=== PATIENT | male | born 1980 | race Hispanic/Latino ===

== ENCOUNTER 2018-05-17 20:46 | Emergency (ER) | payer OTHER | END 2018-05-17 21:05 | disposition home or self-care (01) | LOC: EDH 20:46 | DX: M79.671 Pain in right foot (principal); M79.674 Pain in right toe(s); G89.29 Other chronic pain | CPT/HCPCS: 99281 ==

== ENCOUNTER 2019-06-03 19:41 | Emergency (ER) | payer OTHER | END 2019-06-03 20:55 | disposition home or self-care (01) | LOC: EDH 19:41 | DX: R22.31 Localized swelling, mass and lump, right upper limb (principal) | CPT/HCPCS: 99281 ==

== ENCOUNTER 2021-12-01 21:12 | Emergency (ER) | payer OTHER ==
[~2021-12-01] VITALS: Ht 172.7 cm; Wt 73.5 kg
[2021-12-01 22:02] VITALS: BP 136/83
[2021-12-01] MEDS ORDERED: AMOX1TAB16 PO (22:36)
[2021-12-01] MEDS ORDERED: IBUP-2071 PO (22:36)
[2021-12-01] MEDS ORDERED: AMOX/CLAV 875/125MG TAB PO ONE ×2 (22:46→23:00)
[2021-12-01] MEDS ORDERED: NEOMYCIN/POLYMYXIN/HC OTIC SUSP 10ML BOTTLE ONE (22:46)
[2021-12-01] MEDS ORDERED: NEOMYCIN/POLYMYXIN/HC OTIC SUSP 10ML BOTTLE AD SCH (23:00)
== END 2021-12-01 23:05 | disposition home or self-care (01) ==
LOC: EDH 21:12
DX: T16.1XXA Foreign body in right ear, initial encounter (principal); H60.91 Unspecified otitis externa, right ear; X58.XXXA Exposure to other specified factors, initial encounter; Y93.89 Activity, other specified; Y92.89 Other specified places as the place of occurrence of the external cause; Y99.8 Other external cause status
CPT/HCPCS: 69200

== ENCOUNTER 2022-12-20 18:43 | Emergency (ER) | payer OTHER ==
[~2022-12-20] VITALS: Ht 172.7 cm; Wt 75.3 kg
[~2022-12-20 18:43] MED LIST: AMOX1TAB16 PO; IBUP-2071 PO
[2022-12-20] MEDS ORDERED: KETOROLAC 30MG VIAL (30MG/ML) IM ONE (21:30)
[2022-12-20] MEDS ORDERED: IBUPROFEN 600 MG TABLET ONE (21:34)
[2022-12-20 21:42] VITALS: BP 124/68
== END 2022-12-20 22:03 | disposition home or self-care (01) ==
LOC: EDH 18:43
DX: M25.521 Pain in right elbow (principal)
CPT/HCPCS: 99282; J1885

== ENCOUNTER 2024-08-25 20:25 | Emergency (ER) | payer SELFPAY ==
[~2024-08-25] VITALS: Ht 172.7 cm; Wt 72.6 kg
[2024-08-25 21:16] VITALS: BP 130/75; PULSE 85; RESP 16; TEMP 99; O2SAT 98
[2024-08-25] MEDS: DiphenhydrAMINE HCL 25 MG CAPSULE PO ONE (21:28)
[2024-08-25] MEDS: FAMOTIDINE 20MG TAB PO ONE (21:28)
[2024-08-25] MEDS ORDERED: DIPH-1242 PO (21:29)
[2024-08-25] MEDS ORDERED: HYDR28OI10 TP (21:29)
--- NOTE | 2024-08-25 21:30 | ERN ---
General Chief Complaint: Insect Bite Stated Complaint: INSECT BITE RT CHEST Time Seen by MD: 20:27 Time Seen by Midlevel: 20:27 Source: patient History of Present Illness Initial Comments Patient is a 43-year-old male presenting to the emergency department with redness to his chest. Patient believes he was bit by an unknown insect approximately 2 hours prior to arrival. He noticed an area of redness with the pain and decided to report to the ER for further evaluation. No other symptoms reported at this time. Allergies: Coded Allergies: No Known Allergies (Unverified Allergy, Unknown, 06/04/19) Home Meds Active Scripts Ibuprofen (Ibuprofen) 800 Mg Tablet, 800 MG PO TID PRN for PAIN, #45 TAB Prov:DEON JEFF 12/01/21 Amoxicillin/Potassium Clav (Amox Tr-K Clv 875-125 mg Tab) 1 Each Tablet, 1 EACH PO BID, #20 TAB Prov:DEON JEFF 12/01/21 Past Medical History Past Medical History: No Pertinent History Past Surgical History: None Family History Family History: Negative Social History Social History: Negative ROS Dictation CONSTITUTIONAL: Negative except for HPI HEAD/FACE: Negative except for HPI EENT: Negative except for HPI RESPIRATORY: Negative except for HPI GASTROINTESTINAL/ABDOMINAL: Negative except for HPI GENITOURINARY: Negative except for HPI MUSCULOSKELETAL: Negative except for HPI INTEGUMENTARY: Negative except for HPI NEUROLOGICAL/PSYCH: Negative except for HPI HEMATOLOGIC/LYMPHATIC: Negative except for HPI All Systems Negative, Except as noted above. 13 point review of systems assessed and all negative except for above. Physical Exam Physical Exam Dictation PHYSICAL EXAM: GENERAL: alert,, awake oriented x 3 HEENT: EOMI, Sclera non icteric, moist mucosa NECK: Supple, no JVD, trachea midline LUNGS: Clear breath sounds bilaterally. No wheezes HEART: Regular rate and rhythm. Normal S1 and S2, without murmurs ABD: Abdomen soft, nontender. Bowel sounds present EXT: No clubbing or cyanosis, NEURO: Alert and oriented to person, follows commands SKIN: Small area of erythema to the right anterior chest wall, no surrounding induration or drainable abscess MDM MDM: Differential diagnosis: Insect bite, cellulitis, abrasion, There are no social concerns with this patient. Prescription drug management Prescriptions will include: Benadryl, hydrocortisone Medical management and examination interpretation discussions were had by me with other qualified healthcare professionals as indicated for the patient's care. ED Course Orders Procedure Category Date Status Time Diphenhydramine Hcl PHA 08/25/24 Transmitted (Benadryl Cap) 21:30 Famotidine 20mg Tab PHA 08/25/24 Transmitted (Pepcid 20mg Tab) 21:30 Vital Signs Date Time Temp Pulse Resp B/P (MAP) Pulse Ox O2 Delivery O2 Flow Rate FiO2 08/25/24 21:16 99.0 85 16 130/75 98 Room Air* 0 21 08/25/24 20:26 99.0 90 18 132/75 100 Room Air DX & DISP Disposition: Discharge Departure Impression: Primary Impression: Insect bite Condition: Stable Scripts Hydrocortisone Acetate (Hydrocortisone) 1 % Oint...g. 1 APPL TP BID for 7 Days, #28 GM 0 Refills Prov: RAMIN DYER 08/25/24 Diphenhydramine HCl (Benadryl) 25 Mg Cap 25 MG PO BID for 5 Days, #10 CAP Prov: RAMIN DYER 08/25/24 Additional Instructions: Your physical examination is consistent with a superficial insect. I have given you medications in the emergency department that should help improve your symptoms. You may take Tylenol and Motrin for pain. I have also given you a prescription for Benadryl and hydrocortisone for the next couple of days. If over the next couple of days you develop any signs of infection please report to your primary care doctor or return to the ER for further evaluation. Referrals: SELF,REFERRAL (PCP) Time of Disposition: 21:28 I have reviewed the case, and I agree with, Diagnosis and Plan I performed the substantive portion of the visit. I have reviewed and personally made and approve the management plan that is documented in the note by myself or the KRISTOFER. I acknowledge for responsibility for the patient's management plan. RAMIN DYER Aug 25, 2024 21:30
--- NOTE | 2024-08-25 21:37 | NUR ---
unable to depart at this time due to registration pt dc at 1433
== END 2024-08-25 21:38 | disposition home or self-care (01) ==
LOC: EDH 20:25
DX: S20.361A Insect bite (nonvenomous) of right front wall of thorax, initial encounter (principal); Z79.899 Other long term (current) drug therapy; W57.XXXA Bitten or stung by nonvenomous insect and other nonvenomous arthropods, initial encounter
CPT/HCPCS: 99283; Q0163

== ENCOUNTER 2025-03-02 08:35 | Emergency (ER) | payer SELFPAY ==
[~2025-03-02] VITALS: Ht 170.2 cm; Wt 72.6 kg
[~2025-03-02 08:35] MED LIST changes: +DIPH-1242 PO; +HYDR28OI10 TP
[2025-03-02 08:49] VITALS: BP 131/78; PULSE 81; RESP 20; TEMP 97.9; O2SAT 97
[2025-03-02] MEDS ORDERED: MOXI3DRO12 OP (08:54)
--- NOTE | 2025-03-02 08:54 | ERN ---
General Chief Complaint: Eye Problems Stated Complaint: SWOLLEN RIGHT EYE Time Seen by MD: 08:37 Source: patient History of Present Illness Initial Comments Patient is a 44-year-old male coming in complaining of right eye swelling. Per patient this has been ongoing for two days. NO Vision disturbance. Allergies: Coded Allergies: No Known Allergies (Unverified Allergy, Unknown, 06/04/19) Home Meds Active Scripts Hydrocortisone Acetate (Hydrocortisone) 1 % Oint...g., 1 APPL TP BID for 7 Days, #28 GM 0 Refills Prov:RAMIN DYER 08/25/24 Diphenhydramine HCl (Benadryl) 25 Mg Cap, 25 MG PO BID for 5 Days, #10 CAP Prov:RAMIN DYER 08/25/24 Ibuprofen (Ibuprofen) 800 Mg Tablet, 800 MG PO TID PRN for PAIN, #45 TAB Prov:DEON JEFF 12/01/21 Amoxicillin/Potassium Clav (Amox Tr-K Clv 875-125 mg Tab) 1 Each Tablet, 1 EACH PO BID, #20 TAB Prov:DEON JEFF 12/01/21 Past Medical History Past Medical History: No Pertinent History Past Surgical History: None Family History Family History: Negative Social History Social History: Negative ROS Dictation CONSTITUTIONAL: NO CHILLS, NO FEVER, NO WEAKNESS, NO DIAPHORESIS, NO MALAISE. HEAD/FACE: NO SIGNS OF TRAUMA. EENT: NO EYE PAIN, NO BLURRED VISION, NO TEARING, NO DOUBLE VISION, NO EAR PAIN, NO EAR DISCHARGE, NO NOSE PAIN, NO NASAL CONGESTION, NO THROAT PAIN, NO THROAT SWELLING, NO MOUTH PAIN. RESPIRATORY: NO COUGH, NO ORTHOPNEA, NO SOB, NO STRIDOR, NO WHEEZING. CARDIOVASCULAR: NO CHEST PAIN, NO EDEMA, NO PALPITATIONS, NO SYNCOPE. GASTROINTESTINAL/ABDOMINAL: NO ABDOMINAL PAIN, NO CONSTIPATION, NO DIARRHEA, NO NAUSEA, NO VOMITING. GENITOURINARY: NO ABNORMAL DISCHARGE, NO DYSURIA, NO FREQUENT URINATION, NO HEMATURIA. NO COMPLAINTS OF PAIN IN THE GENITALS. MUSCULOSKELETAL: NO BACK PAIN, NO GOUT, NO JOINT PAIN, NO JOINT SWELLING, NO MUSCLE PAIN, NO MUSCLE STIFFNESS, NO NECK PAIN. INTEGUMENTARY: NO CHANGE IN COLOR, NO CHANGE IN HAIR/NAILS, NO DRYNESS, NO LESION, NO LUMPS, NO RASH. NEUROLOGICAL/PSYCH: NO ANXIETY, NOT DEPRESSED, NO EMOTIONAL PROBLEM, NO HEADACHE, NO NUMBNESS, NO PRE-EXISTING DEFICIT, NO HISTORY OF SEIZURES, NO TREMORS, NO WEAKNESS. HEMATOLOGIC/LYMPHATIC: NOT ANEMIC, NO HISTORY OF BLOOD CLOTS, NO APPARENT BLEEDING, NO BRUISING, GLANDS NOT SWOLLEN. ALL SYSTEMS NEGATIVE, EXCEPT NOTED. Physical Exam Physical Exam Dictation VITAL SIGNS: REVIEWED. GENERAL APPEARANCE: ALERT, ORIENTED X3, NO ACUTE DISTRESS, OBESE. HEAD AND FACE: NON-TRAUMATIC. EYES: PERRL, PINK CONJUNCTIVAS, EYELID NO TRAUMA, RIGHT UPPER EYE LID SWELLING, ANTERIOR CHAMBER CLEAR. EARS: PINNAS INTACT AND NO SIGNS OF TRAUMA OR ERYTHEMA. EAR CANALS CLEAR AND NO DISCHARGE. TMS NO ERYTHEMA. NOSE: NO DISCHARGE, NO BLEEDING. OROPHARYNX: MOUTH NORMAL, TEETH NO CARIES, TONGUE PINK. PHARYNX CLEAR, NO ERYTHEMA. TONSILS NO EXUDATES, NO ABSCESSES NOTED. MUCOUS MEMBRANE MOIST. NECK: SUPPLE, NON-TENDER, NO THYROMEGALY, NO MASSES, NO JVD, NO BRUITS. BREAST: DEFERRED. CHEST: NO TENDERNESS, NO CREPITUS, NO PARADOXICAL MOVEMENT, NO RETRACTIONS. LUNGS: CLEAR, WELL-VENTILATED, SYMMETRIC, NO RALES, NO WHEEZING, NO RHONCHI, NO STRIDOR, GOOD BREATH SOUNDS BILATERALLY. HEART: REGULAR RATE, REGULAR RHYTHM, NO MURMUR, NO GALLOPS. VASCULAR: NO PERIPHERAL EDEMA. ABDOMEN: SOFT, POSITIVE BOWEL SOUNDS, NONDISTENDED, NO GUARDING, NONTENDER, NO REBOUND, NO MASSES NO HEPATOMEGALY, NO SPLENOMEGALY, NO REYNOLDS'S SIGN, NO HERNIAS. RECTAL: DEFERRED. GENITAL: DEFERRED. NEUROLOGICAL: NORMAL SPEECH, GROSS MOTOR FUNCTION INTACT, GROSS SENSORY FUNCTION INTACT. MUSCULOSKELETAL: NECK NONTENDER, FULL RANGE OF MOTION, BACK NONTENDER, FULL RANGE OF MOTION. EXTREMITIES: NONTENDER, FULL RANGE OF MOTION. SKIN: COLOR PINK, DRY, NO TURGOR, NO RASH, NO LACERATIONS, NO ABRASIONS, NO CO NTUSIONS. LYMPHATICS: DEFERRED. Results Laboratory and Microbiology Labs Reviewed?: Yes MDM MDM: DIFFERENTIAL DIAGNOSIS: HORDEOLUM, STYE, RATIONALE: TESTS CONSIDERED AND ORDERED SECONDARY TO SHARED DECISION MAKING INCLUDE: PREVIOUS OUTSIDE RECORDS REVIEWED: OLD ER VISITS. RISK OF COMPLICATION AND/OR MORBIDITY OR MORTALITY OF PATIENT MANAGEMENT: NONE MEDICATIONS-PER MEDICATION RECONCILIATION NEED FOR HOSPITALIZATION: PATIENT DOES NOT MEET CRITERIA FOR HOSPITALIZATION. NEED FOR EMERGENCY MAJOR/MINOR SURGERY: NO PATIENT IS A 45-YEAR-OLD MALE COMING IN COMPLAINING OF THE RIGHT UPPER EYELID SWELLING. ON PHYSICAL EXAM THERE IS SWELLING TO THE UPPER EYELID CONSISTENT WITH A STYE. PATIENT WAS PRESCRIBED ANTIBIOTICS AND WILL BE DISCHARGED IN STABLE CONDITION FOLLOW UP WITH PCP IN 1-2 DAYS. ED Course Vital Signs Date Time Temp Pulse Resp B/P (MAP) Pulse Ox O2 Delivery O2 Flow Rate FiO2 03/02/25 08:38 97.5 80 18 122/80 99 Room Air 0 DX & DISP Disposition: Discharge Departure Impression: Primary Impression: Hordeolum of right eye Condition: Stable Scripts Moxifloxacin HCl (Moxifloxacin) 0.5 % Drops 1 DROP OP TID for 7 Days, #3 ML 0 Refills Prov: WINDY OLEARY MD 03/02/25 Additional Instructions: FOLLOW-UP WITH PRIMARY CARE PROVIDER IN 1 TO 2 DAYS. TAKE MEDICATIONS DIRECTED HERE IN THE EMERGENCY ROOM. OKAY TO CONTINUE HOME MEDICATIONS UNLESS OTHERWISE DISCUSSED DURING YOUR VISIT IN THE EMERGENCY ROOM TODAY. RETURN TO YOUR NEAREST EMERGENCY ROOM IF SYMPTOMS WORSEN OR IF THERE IS NO IMPROVEMENT. CALL 911 IF YOU NEED IMMEDIATE ASSISTANCE. TAKE TYLENOL [id number] NEEDED AND IF NO CONTRAINDICATIONS ARE PRESENT. INCREASE ORAL HYDRATION. A WOUND CULTURE OR URINE CULTURE WAS ORDERED HERE IN THE EMERGENCY ROOM DEPARTMENT PLEASE FOLLOW-UP WITH PRIMARY CARE PROVIDER AND ADVISE THEM TO GET REPORTS FROM OUR FACILITY. IF YOU HAD ANY [place] WRAP/SPLINTS THAT WERE APPLIED HERE, PLEASE DO NOT REMOVE THEM UNTIL YOU SEE YOUR PRIMARY CARE OR SPECIALTY. REFERRALS: Referrals: SELF,REFERRAL (PCP) RAMIN RICHMOND MD Time of Disposition: 08:52 WINDY OLEARY MD Mar 02, 2025 08:54
== END 2025-03-02 09:00 | disposition home or self-care (01) ==
LOC: EDH 08:35
DX: H00.013 Hordeolum externum right eye, unspecified eyelid (principal)
CPT/HCPCS: 99283